=== PATIENT | female | born 1980 | race Two or more races ===

== ENCOUNTER 2016-03-13 12:04 | Emergency (ER) | payer SELFPAY ==
[2016-03-13] MEDS ORDERED: IOPAMIDOL 300 (61%) 100 ML VIAL IV ONE (12:05)
[2016-03-13] MEDS ORDERED: LACTATED RINGERS 1,000 ML ONE (14:24)
[2016-03-13 14:38] LABS: ABSOLUTE NEUTROPHIL COUNT 5.3 K/mm3 (1.8-7.7); BASO % 0.6 % (0.2-1.0); EOS % 0.3 % (0.9-2.9); HEMATOCRIT 37.1 % (37.0-47.0); HEMOGLOBIN 12.3 gm/l (12.0-16.0); IMM NEUT% 0.3 % (0-1); LYMPH # 1.5 (1.0-4.8); LYMPH % 20.8 % (15-45); MEAN CELL VOLUME 91.6 fl (81.0-99.0); MEAN CORPUSCULAR HEMOGLOBIN 30.4 pg (27.0-31.0); MEAN CORPUSCULAR HGB CONC 33.2 g/dl (33.0-37.0); MEAN PLATELET VOLUME 11.9 fl (7.4-10.4); MONO # 0.4 (0.0-0.8); MONO % 5.4 % (4-12); NEUT % 72.6 % (43-75); PLATELET COUNT 250 K/mm3 (130-400)
--- NOTE | 2016-03-13 14:38 | CT ---
NECK SOFT TISSUE W/ CON COMPARISON: None. HISTORY: 35-year-old female. Intermittent shortness of breath for one and one half years.. Seen here 3 days ago with difficulty breathing and tachycardia thought to be cause by a thyroid problem. Today, she returns with difficulty breathing and feels like something is stuck in the throat. TECHNIQUE: Intravenous injection 80 mL Isovue-370. Using a [employer] [address], images obtained from the superior mediastinum to the skull base. An automated dose reduction technique was used to minimize patient radiation dose. Dose information: CTDIvol (mGy): 5.70 DLP(mGycm): 176.10 FINDINGS: Lymph nodes: No lymphadenopathy. Superior mediastinum: Normal. Vessels: Normal. Nasopharynx: Normal. Oropharynx: Normal. Hypopharynx: Normal. Larynx: Normal. Epiglottis: Normal. Esophagus: Normal. Trachea: Normal. Tongue: Normal. Salivary glands: Normal. Thyroid gland: Normal. Retropharyngeal space: Normal. Parapharyngeal space: Normal. Paranasal sinuses: Normal. Nasal passages: Normal. Facial bones: Normal. Orbits: Normal. Cervical spine: Normal. Lung apices: Normal. Paraspinal muscles: Normal. IMPRESSION: 1. Normal study. Airway is widely patent. There is no mass or lymphadenopathy. There've report was sent to the emergency department [facility] medical record system 03/13/2016 at 14:39
[2016-03-13 15:01] LABS: CALCIUM 9.9 mg/dL (8.6-10.3)
== END 2016-03-13 16:32 | disposition home or self-care (01) ==
LOC: ED 12:04
DX: R07.0 Pain in throat (principal); F41.9 Anxiety disorder, unspecified; E07.9 Disorder of thyroid, unspecified; G47.00 Insomnia, unspecified
CPT/HCPCS: 85025; 80048; 84443; 70491; 99283 ×2; 96360; J7120; Q9967